=== PATIENT | female | born 1950 | race Caucasian/White ===

== ENCOUNTER 2017-01-16 14:22 | Emergency (ER) | payer MEDICARE, OTHER ==
[~2017-01-16 14:22] MED LIST: ADVIL PO; ASAB PO; BENTYL20 PO; DCN100 PO; HALF81 PO; IMDUR30 PO; L20 PO; LYRICA75 PO; NITROSTAT0.4 MG SL; NORV25 PO; P5 PO; PLAQ200B PO; PRIN20 PO; X5 PO
== END 2017-01-16 19:59 | disposition home or self-care (01) ==
LOC: ER 14:22
DX: M54.5 Low back pain (principal); I10 Essential (primary) hypertension; Z95.0 Presence of cardiac pacemaker; Z88.5 Allergy status to narcotic agent; Z79.82 Long term (current) use of aspirin; Z91.048 Other nonmedicinal substance allergy status; Z79.899 Other long term (current) drug therapy
CPT/HCPCS: 72100; 96372; 99284; J1170; J2360; J2405